=== PATIENT | male | born 1970 | race African-American/Black ===

== ENCOUNTER 2019-06-07 19:21 | Emergency (ER) | payer OTHER ==
[~2019-06-07] VITALS: Ht 177.8 cm; Wt 72.6 kg
[2019-06-07] MEDS ORDERED: Mylanta II UD 30ml ORAL ONE (19:45)
[2019-06-07] MEDS ORDERED: Metoclopramide 10mg/2ml Inj IVP ONE (19:45)
[2019-06-07] MEDS ORDERED: DiphenhydrAMINE 50mg/ml Inj IVP ONE (19:45)
--- NOTE | 2019-06-07 19:57 | Emergency Room Report ---
History of Present Illness General Chief Complaint: Head Injury Source: Patient Present Illness HPI The patient was swinging on a swing last night. He had been drinking alcohol. He fell back and hit the back of his head. There was no loss of consciousness. There is a bump there. Today's had severe nausea and epigastric pain. he has not vomited but is having difficulty drinking any fluids. He came to get checked out because he has to fly back to [place] tomorrow. The pain in his abdomen is rated 10/10. It is sharp and aching and somewhat burning without radiation. No fevers, chills, sore throat, chest pain, palpitations, diarrhea, dysuria, shortness of breath, joint pain, depression, anxiety, visual changes, dizziness. Allergies: Coded Allergies: No Known Allergies (Unverified , 06/07/19) Patient History Past Medical History: see triage record Social History: Reports: alcohol use; Denies: smoking, drug use - See tox screen Social History Narrative Visiting a girlfriend Reviewed Nursing Documentation: PMH: Agreed; PSxH: Agreed Nursing Documentation-PM Past Medical History: No Stated History Review of Systems All Other Systems: negative except mentioned in HPI Physical Exam Vital Signs Date Time Temp Pulse Resp B/P (MAP) Pulse Ox O2 Delivery O2 Flow Rate FiO2 06/07/19 19:25 98.1 84 18 146/95 (112) 98 Room Air Sp02 EP Interpretation: reviewed, normal General Appearance: well appearing, no apparent distress, GCS 15, non-toxic Head: normocephalic, other - Small hematoma occiput Eyes: bilateral eye PERRL, bilateral eye EOMI, bilateral eye Scleral Injection ENT: moist mucus membranes Neck: full range of motion, supple, no bony tend Respiratory: chest non-tender, lungs clear, normal breath sounds Cardiovascular #1: regular rate, rhythm Cardiovascular #2: 2+ radial (R) Gastrointestinal: normal inspection, normal bowel sounds, no mass, non- distended, no guarding, no rebound, tenderness - Reported epigastric Genitourinary: no CVA tenderness Musculoskeletal: back normal, normal range of motion, gait/station normal Neurologic: motor strength/tone normal, polo coach III-XII nml as tested, oriented, DTRs symmetric, oriented x3, sensory intact, cerebellar normal, speech normal Psychiatric: mood/affect normal Skin: warm/dry, abrasion - occiput Medical Decision Making Diagnostic Impression: Primary Impression: Concussion Qualified Codes: S06.0X0A - Concussion without loss of consciousness, initial encounter Additional Impressions: Gastritis Qualified Codes: K29.20 - Alcoholic gastritis without bleeding Substance abuse ER Course Patient presents post head injury with epigastric pain. Differential includes acute myocardial infarction, concussion, alcohol withdrawal, gastritis amongst others. Patient will be evaluated with EKG, CT the head and labs. Patient and I discussed CT of the head and he would prefer repeated neurologic exams which I said I was happy to do. There are no red flags signs or symptoms. The patient be treated with Reglan, Benadryl and Pepcid initially. Also be given a dose of Mylanta. He will also receive IV hydration. Tetanus indicated and bacitracin. EKG without injury injury. Chest x-ray normal. Labs significant for positive cocaine and THC. Tolerating PO well. Repeat neurologic exam unchanged. Discussed finding with patient. He admits to drug use and states this is not a recurrent problem. Discussed treatment plan with patient. Patient reports pain now 08/25. Patient stable for outpatient observation and treatment. Laboratory Tests Test 06/07/19 19:45 White Blood Count 6.6 K/UL (4.8-10.8) Red Blood Count 4.55 M/UL (4.70-6.10) L Hemoglobin 14.1 G/DL (14.2-18.0) L Hematocrit 41.4 % (42.0-52.0) L Mean Corpuscular Volume 91 FL (80-99) Mean Corpuscular Hemoglobin 31.0 PG (27.0-31.0) Mean Corpuscular Hemoglobin Concent 34.1 G/DL (32.0-36.0) Red Cell Distribution Width 10.4 % (11.6-14.8) L Platelet Count 233 K/UL (150-450) Mean Platelet Volume 6.5 FL (6.5-10.1) Neutrophils (%) (Auto) 60.6 % (45.0-75.0) Lymphocytes (%) (Auto) 28.8 % (20.0-45.0) Monocytes (%) (Auto) 9.4 % (1.0-10.0) Eosinophils (%) (Auto) 0.3 % (0.0-3.0) Basophils (%) (Auto) 0.8 % (0.0-2.0) Urine Color Pale yellow Urine Appearance Clear Urine pH 8 (4.5-8.0) Urine Specific [place] 1.010 (1.005-1.035) Urine Protein Negative (NEGATIVE) Urine Glucose (UA) Negative (NEGATIVE) Urine Ketones Negative (NEGATIVE) Urine Blood Negative (NEGATIVE) Urine Nitrite Negative (NEGATIVE) Urine Bilirubin Negative (NEGATIVE) Urine Urobilinogen Normal MG/DL (0.0-1.0) Urine Leukocyte Esterase Negative (NEGATIVE) Sodium Level 143 MMOL/L (136-145) Potassium Level 3.4 MMOL/L (3.5-5.1) L Chloride Level 103 MMOL/L (98-107) Carbon Dioxide Level 29 MMOL/L (21-32) Anion Gap 11 mmol/L (5-15) Blood Urea Nitrogen 8 mg/dL (7-18) Creatinine 1.0 MG/DL (0.55-1.30) Estimate Glomerular Filtration Rate > 60 mL/min (>60) Glucose Level 121 MG/DL (74-106) H Calcium Level 9.3 MG/DL (8.5-10.1) Total Bilirubin 0.5 MG/DL (0.2-1.0) Aspartate Amino Transferase (AST) 20 U/L (15-37) Alanine Aminotransferase (ALT) 24 U/L (12-78) Alkaline Phosphatase 44 U/L (46-116) L Total Creatine Kinase 276 U/L (26-308) Troponin I 0.000 ng/mL (0.000-0.056) Total Protein 7.9 G/DL (6.4-8.2) Albumin 4.2 G/DL (3.4-5.0) Globulin 3.7 g/dL Albumin/Globulin Ratio 1.1 (1.0-2.7) Lipase 146 U/L (73-393) Urine Opiates Screen Negative (NEGATIVE) Urine Barbiturates Screen Negative (NEGATIVE) Phencyclidine (PCP) Screen Negative (NEGATIVE) Urine Amphetamines Screen Negative (NEGATIVE) Urine Benzodiazepines Screen Negative (NEGATIVE) Urine Cocaine Screen Positive (NEGATIVE) H Urine Marijuana (THC) Screen Positive (NEGATIVE) H EKG Diagnostic Results Rate: normal Rhythm: NSR ST Segments: no acute changes Rhythm Strip Diag. Results EP Interpretation: yes Rhythm: NSR, no PVC's, no ectopy Chest X-Ray Diagnostic Results Chest X-Ray Diagnostic Results : Chest X-Ray Ordered: Yes # of Views/Limited/Complete: 1 View Indication: Other EP Interpretation: Yes Interpretation: no consolidation, no effusion, no pneumothorax Impression: No acute disease Electronically Signed by: Electronically signed by Luis Odom MD Last Vital Signs Date Time Temp Pulse Resp B/P (MAP) Pulse Ox O2 Delivery O2 Flow Rate FiO2 06/07/19 21:24 98.1 68 18 125/79 98 Room Air Status: improved Disposition: HOME, SELF-CARE Condition: Improved Scripts Mag Hydrox/Aluminum Hyd/Simeth (Mylanta Maximum Strength Liq) 355 Ml Oral.susp 30 ML PO BID, #240 ML Prov: Luis Odom MD 06/07/19 Acetaminophen (Tylenol) 325 Mg Tablet 650 MG ORAL Q6H PRN for Prn Pain/Headache/Temp > 101, #20 TAB 0 Refills Prov: Lusi Odom MD 06/07/19 Famotidine* (Pepcid 20mg tablet*) 20 Mg Tablet 20 MG ORAL DAILY, #20 TAB 0 Refills Prov: Luis Odom MD 06/07/19 Luis Odom MD Jun 07, 2019 19:57
[2019-06-07 20:12] VITALS: BP 146/95
[2019-06-07] MEDS ORDERED: Bacitracin Oint UD TOPIC ONE (20:15)
[2019-06-07] MEDS ORDERED: Tetanus/Diptheria/Pertussis IM ONE (20:15)
[2019-06-07 20:39] LABS: APPEARANCE,URINE CLEAR; BILIRUBIN, URINE NEGATIVE (NEGATIVE); COLOR,URINE PALE YELLOW; GLUCOSE, URINE (UA) NEGATIVE (NEGATIVE); KETONES,URINE NEGATIVE (NEGATIVE); LEUKOCYTE ESTERASE ,URINE NEGATIVE (NEGATIVE); NITRITE,URINE NEGATIVE (NEGATIVE); PH,URINE 8 (4.5-8.0); PROTEIN,URINE NEGATIVE (NEGATIVE); UROBILINOGEN,URINE NORMAL MG/DL (0.0-1.0)
[2019-06-07 20:42] LABS: ANION GAP 11 mmol/L (5-15); BLOOD UREA NITROGEN 8 mg/dL (7-18); CALCIUM 9.3 MG/DL (8.5-10.1); CARBON DIOXIDE 29 MMOL/L (21-32); CHLORIDE 103 MMOL/L (98-107); POTASSIUM 3.4 MMOL/L (3.5-5.1); SODIUM 143 MMOL/L (136-145)
[2019-06-07 20:46] LABS: ALANINE AMINOTRANSFERASE 24 U/L (12-78); ALBUMIN 4.2 G/DL (3.4-5.0); ALBUMIN/GLOBULIN RATIO 1.1 (1.0-2.7); ALKALINE PHOSPHATASE 44 U/L (46-116); ASPARTATE AMINO TRANSFERASE 20 U/L (15-37); BILIRUBIN,TOTAL 0.5 MG/DL (0.2-1.0); CREATINE KINASE 276 U/L (26-308)
[2019-06-07 20:47] LABS: BASOPHILS % (AUTO) 0.8 % (0.0-2.0); EOSINOPHILS % (AUTO) 0.3 % (0.0-3.0); HEMATOCRIT 41.4 % (42.0-52.0); HEMOGLOBIN 14.1 G/DL (14.2-18.0); LYMPHOCYTES % (AUTO) 28.8 % (20.0-45.0); MEAN CORPUSCULAR VOLUME 91 FL (80-99); MONOCYTES % (AUTO) 9.4 % (1.0-10.0); NEUTROPHILS % (AUTO) 60.6 % (45.0-75.0); PLATELET COUNT 233 K/UL (150-450); RED BLOOD COUNT 4.55 M/UL (4.70-6.10); RED CELL DISTRIBUTION WIDTH 10.4 % (11.6-14.8); WHITE BLOOD COUNT 6.6 K/UL (4.8-10.8)
[2019-06-07] MEDS ORDERED: MYLANTA MAXIMU355 ML PO (21:09)
[2019-06-07] MEDS ORDERED: TYLENOL325 MG ORAL (21:09)
[2019-06-07] MEDS ORDERED: FAMOTIDINE20 MG ORAL (21:09)
[2019-06-07 21:24] VITALS: BP 125/79
== END 2019-06-07 21:25 | disposition home or self-care (01) ==
LOC: EMR 19:40
DX: S06.0X0A Concussion without loss of consciousness, initial encounter (principal); K29.20 Alcoholic gastritis without bleeding; F19.10 Other psychoactive substance abuse, uncomplicated; W19.XXXA Unspecified fall, initial encounter; Y93.9 Activity, unspecified; Y92.9 Unspecified place or not applicable
CPT/HCPCS: 36415; 80053; 80307; 81003; 82550; 83690; 84484; 85025; 90471; 90715; 93005; 96361; 96374; 96375; 99284; J1200; J2765; J7030; S0028